=== PATIENT | male | born 1945 | race Caucasian/White ===

== ENCOUNTER → 2016-05-25 | Outpatient (CLI) | payer OTHER ==
[~2016-05-25] MED LIST: ACET-1256 PO; AMLO-114 PO; AMR2 PO; ASPEC325 PO; ASPI81TA28 PO; CITA40TA12 PO; CLOP1TAB15 PO; DVN80 PO; EZET10TA41 PO; FEXO1TAB49 PO; FINA5TAB PO; FOLI1TAB7 PO; GLIM4TAB2 PO; ISOS30TA3 PO; ISOS30TA51 PO; LANS15CA6 PO; LANSOPRAZOLE 15 MG PO; LORA-741 PO; LOSA100T65 PO; MELO7.5T5 PO; MESA0.37 PO; METO50TA7 PO; NTRGSL/4 UT; ONDA8TAB6 PO; OXYSR10 PO; ROSU20TA PO; RXC5 PO; SNK PO; TRAZ50TA35 PO
[2016-05-25 13:19] LABS: CHOLESTEROL/HDL RATIO 3.2
[2016-05-25 13:25] LABS: ESTIMATED AVERAGE GLUCOSE 157 mg/dl; HA1C FLAG Normal (Normal)
== END | disposition home or self-care (01) ==
LOC: C.LABMFLN 08:15
PROVIDERS: ATTEND Family Medicine
DX: E78.5 Hyperlipidemia, unspecified (principal); E11.9 Type 2 diabetes mellitus without complications

== ENCOUNTER → 2016-08-01 | Outpatient (CLI) | payer OTHER ==
[~2016-08-01] MED LIST changes: -ISOS30TA51 PO; +ISR/30 PO
--- NOTE | 2016-08-01 15:16 | DIAGNOSTIC IMAGING REPORT ---
CT TEMPORAL ORB/SELLA/TEMP W/O CT DOSE: 1375.36 mGy.cm CLINICAL HISTORY: History of mastoidectomy with right otorrhea. TECHNIQUE: Helical images were acquired in the transverse plane. Coronal reformatted images were acquired. COMPARISON STUDY: None. FINDINGS: There is near complete opacification of the right maxillary sinus. There is mild mucosal thickening within the left maxilla sinus. There are postsurgical changes of a right mastoidectomy. There is opacification of multiple left mastoid air cells. Several small fluid levels are visualized. The left scutum appears intact. There is truncation of the right scutum possibly secondary to prior surgery. The right middle ear cavity appears well aerated. Within the left middle ear cavity, there is minimal soft tissue at the level of the oval window. The internal auditory canals appear symmetric. IMPRESSION: 1. Near complete opacification of the right maxillary sinus 2. Postsurgical changes of a right mastoidectomy 3. Left mastoid effusion 4. The left scutum appears intact 5. Minimal soft tissue within the left middle ear cavity at the level of the oval window 6. Moderate arthritic changes involving the temporomandibular joints bilaterally Electronically signed by: Joel Day M.D. 08/01/2016 3:15 PM Dictated Date/Time: 08/01/2016 3:09 PM
== END | disposition home or self-care (01) ==
LOC: C.CTS 14:05
PROVIDERS: ATTEND Physician Assistant
DX: Z98.890 Other specified postprocedural states (principal)

== ENCOUNTER → 2016-08-29 | Outpatient (CLI) | payer OTHER ==
[~2016-08-29] MED LIST changes: -AMR2 PO; -ASPEC325 PO; -DVN80 PO; -EZET10TA41 PO; -LANSOPRAZOLE 15 MG PO; -MELO7.5T5 PO
== END | disposition home or self-care (01) ==
LOC: C.LABMFLN 10:59
DX: Z01.818 Encounter for other preprocedural examination (principal)

== ENCOUNTER → 2016-09-05 | Outpatient (CLI) | payer OTHER | END | disposition home or self-care (01) | LOC: C.LABMFLN 10:26 | PROVIDERS: ATTEND Physician Assistant | DX: Z01.818 Encounter for other preprocedural examination (principal) ==

== ENCOUNTER 2016-09-14 09:55 | Inpatient (IN) | payer OTHER ==
[2016-08-16 13:45] VITALS: BMI 25.0
--- NOTE | 2016-08-16 14:22 | PAT Medication Instructions ---
Service Date Aug 16, 2016. Current Home Medication List Acetaminophen (Tylenol), 1,000 MG PO BID Amlodipine (Norvasc), 10 MG PO QPM Aspirin (Aspirin Ec), 81 MG PO QAM Citalopram Hydrobromide (Celexa), 40 MG PO HS Clopidogrel (Plavix), 75 MG PO QAM Fexofenadine Hcl (Yessy Allergy), 1 TAB PO QAM Finasteride (Proscar), 5 MG PO QAM Folic Acid (Folvite), 1 MG PO QAM Glimepiride (Glimepiride), 1 TAB PO BID Isosorbide Dinitrate (Isordil), 30 MG PO QAM Lansoprazole (Prevacid), 15 MG PO QAM Lorazepam (Ativan), 0.5 MG PO TID Losartan Potassium (Cozaar), 100 MG PO QAM Mesalamine (Apriso), 4 CAP PO QAM Metoprolol Succ (Toprol Xl) (Toprol-Xl), 50 MG PO QPM Nitroglycerin (Nitrostat), 0.4 MG UT PRN Rosuvastatin Calcium (Crestor), 20 MG PO QPM Trazodone Hcl (Trazodone), 25 MG PO HS Medication Instructions For Your Scheduled Surgery Clopidogrel (Plavix), 75 MG PO QAM (patient will check with envelope machine adjuster for instructions (please make cardio aware that you have to be off Plavix for 7 days for spinal anesthesia) Mesalamine (Apriso), 4 CAP PO QAM (patient will check with surgeon for instructions) Nitroglycerin (Nitrostat), 0.4 MG UT PRN (if needed) - Hold the following medications the morning of surgery: Losartan Potassium (Cozaar), 100 MG PO QAM Glimepiride (Glimepiride), 1 TAB PO BID Folic Acid (Folvite), 1 MG PO QAM Fexofenadine Hcl (Yessy Allergy), 1 TAB PO QAM - Take the following medications the morning of surgery with a sip of water: Lorazepam (Ativan), 0.5 MG PO TID Isosorbide Dinitrate (Isordil), 30 MG PO QAM Lansoprazole (Prevacid), 15 MG PO QAM Aspirin (Aspirin Ec), 81 MG PO QAM Acetaminophen (Tylenol), 1,000 MG PO BID Finasteride (Proscar), 5 MG PO QAM - Take the following medications as scheduled the night before surgery: Rosuvastatin Calcium (Crestor), 20 MG PO QPM Trazodone Hcl (Trazodone), 25 MG PO HS Metoprolol Succ (Toprol Xl) (Toprol-Xl), 50 MG PO QPM Lorazepam (Ativan), 0.5 MG PO TID Glimepiride (Glimepiride), 1 TAB PO BID Citalopram Hydrobromide (Celexa), 40 MG PO HS Acetaminophen (Tylenol), 1,000 MG PO BID Amlodipine (Norvasc), 10 MG PO QPM If you have any questions please call us at [phone] or [phone] ( [place]) or [phone]
[2016-08-16 15:27] LABS: BASO % 0.3 %; BASO ABS # 0.02 K/uL (0-0.2); COMPLETE YES; EOS % 0.9 %; HEMATOCRIT 41.1 % (42-52); IG% 0.2 %; LYMPH % 36.6 %; LYMPH ABS # 2.33 K/uL (1.2-3.4); MEAN CELL VOLUME 86.9 fL (80-100); MEAN CORPUSCULAR HEMOGLOBIN 29.6 pg (25-34); MEAN CORPUSCULAR HGB CONC 34.1 g/dl (32-36); MEAN PLATELET VOLUME 9.9 fL (7.4-10.4); MONO % 11.6 %; NEUT % 50.4 %; PLATELET COUNT 162 K/uL (130-400); RED BLOOD COUNT 4.73 M/uL (4.7-6.1); WHITE BLOOD COUNT 6.37 K/uL (4.8-10.8)
[2016-08-16 15:50] LABS: PARTIAL THROMBOPLASTIN RATIO 1.1; PROTHROMBIN TIME (PATIENT) 10.4 SECONDS (9.0-12.0)
[2016-08-16 16:17] LABS: BUN/CREATININE RATIO 16.1 (10-20); CALCIUM 9.6 mg/dl (8.5-10.1); POTASSIUM 4.4 mmol/L (3.5-5.1)
[2016-08-17 07:29] LABS: ESTIMATED AVERAGE GLUCOSE 166 mg/dl; HA1C FLAG Normal (Normal)
--- NOTE | 2016-09-13 12:17 | HISTORY & PHYSICAL EXAMINATION ---
DATE OF ADMISSION: 09/14/2016 CHIEF COMPLAINT: Bilateral knee pain. HISTORY OF PRESENT ILLNESS: The patient is a 71-year-old male with known bilateral knee osteoarthritis. He had previous right femur surgery many years ago. He has had previous corticosteroid injections. He is limited with medication use due to Plavix use. He has ongoing pain and disability with activities of daily living. He has pain with prolonged weightbearing and standing activities. He has difficulty in kneeling, bending, or squatting activities. He now desires to proceed with left total knee arthroplasty and right knee corticosteroid injection. PAST MEDICAL HISTORY: Type 2 diabetes, renal cancer status post nephrectomy, coronary artery disease, depression, hypertension, and hyperlipidemia. PAST SURGICAL HISTORY: Right femur surgery, nephrectomy, left shoulder surgery, and coronary angioplasty. MEDICATIONS: Apriso 4 capsules q.a.m., Flonase 2 sprays each nostril daily, Nitrostat 0.4 mg sublingual p.r.n. chest pain, Crestor 20 mg daily, Yessy 180 mg daily, Toprol-XL 50 mg daily, Amaryl 4 mg 2 tablets once daily, Plavix 75 mg daily, Imdur 30 mg daily, aspirin 81 mg daily, folic acid 1 mg daily, Ativan 0.5 mg 3 times daily p.r.n., Celexa 40 mg daily, trazodone HCL 50 mg half tablet at bedtime, losartan potassium 100 mg daily, Tylenol extra strength 2 tablets twice daily, amlodipine besylate 10 mg daily, lansoprazole 15 mg daily, finasteride 5 mg daily. ALLERGIES: CODEINE CAUSES NAUSEA; PENICILLIN, HIVES AND RASH; PERCOCET CAUSES HIM TO HALLUCINATE; SULFA ANTIBIOTICS CAUSES HIVES. SOCIAL HISTORY AND REVIEW OF SYSTEMS: Noncontributory. PHYSICAL EXAMINATION: GENERAL: Well-nourished, well-developed elderly male who appears older than stated age. HEENT: Normocephalic, atraumatic, extraocular movements intact, oropharynx pink and moist. NECK: Supple without adenopathy. LUNGS: Clear to auscultation bilaterally. HEART: Regular rate and rhythm. ABDOMEN: Soft, nontender, nondistended. EXTREMITIES: The upper extremities are within normal limits. The bilateral knees have a varus alignment. He complains primarily of medial compartment pain. His range of motion from 0-120 degrees bilaterally. He has moderate crepitus bilaterally. X-RAYS: X-rays were reviewed. He has severe tricompartmental disease bilaterally. He has bone on bone arthritis of the medial compartment with complete loss of the joint space. There is diffuse osteophyte about the medial, lateral and patellofemoral compartments. There is presence of an IM sancho in the right femur. ASSESSMENT: Bilateral knee degenerative joint disease. PLAN: Risks versus benefits were discussed. Consent was obtained. The patient's primary care physician is Dr. Barber. His director service is [facility] in [place]. Will proceed with left total knee arthroplasty and right knee corticosteroid injection upon preoperative workup and medical clearance.
[2016-09-14] VITALS (9 sets, daily range): BP systolic 129–164; BP diastolic 73–89; PULSE 56–83; TEMP 36.3–36.8; O2SAT 95–99; Ht 185.4 cm; Wt 85.9 kg
[~2016-09-14] VITALS: Ht 185.4 cm; Wt 85.9 kg
[~2016-09-14 09:55] MED LIST changes: +ACETAMINOPHEN 500 MG TAB PO SCH; +BUPIVACAINE 0.5 % 5 MG/1 ML PF 10ML VIAL ONE; +DEXAMETHASONE 4 MG TAB PO SCH; +FAMOTIDINE 20 MG TAB PO SCH; +GABAPENTIN 300 MG CAP PO SCH; -ISOS30TA3 PO; +LACTATED RINGER'S 1000ML 1,000 ML IV SCH; +METOCLOPRAMIDE HCL 10 MG TAB PO SCH; -ONDA8TAB6 PO; -OXYSR10 PO; +ROPIVACAINE 5MG/ML 30 ML 150 MG, BUPIVACAINE/EPINEPHR 0.5% MPF 30 ML, KETOROLAC TROMETH... INFIL SCH; -RXC5 PO; -SNK PO; +VANCOMYCIN INJ 1,300 MG in SODIUM CHLORIDE 0.9% 250ML 250 ML IV SCH
--- NOTE | 2016-09-14 10:05 | History & Physical Bridge Note ---
H&P Re-Evaluation Bridge Note: I have examined the patient, reviewed the History & Physical and in the interval since the performance of the History & Physical I have noted the following changes of clinical significance: No changes noted
[2016-09-14] MEDS ORDERED: ATROPINE SULFATE 0.1 MG/ML 5ML SYR IV PRN (10:30)
[2016-09-14] MEDS ORDERED: ONDANSETRON INJ 2 MG/ML 2 ML VIAL IV PRN ×2 (10:30→13:45)
[2016-09-14] MEDS ORDERED: EpHEDrine SULFATE INJ 50 MG/ML AMP IV PRN (10:30)
[2016-09-14] MEDS ORDERED: FENTANYL CITRATE INJ 50 MCG/1 ML 2 ML VIAL IV PRN (10:30)
[2016-09-14] MEDS ORDERED: FENTANYL CITRATE INJ 50 MCG/1 ML 2 ML VIAL ONE (11:03)
[2016-09-14] MEDS ORDERED: MIDAZOLAM HCL 1 MG/ML 2ML VIAL ONE (11:03)
[2016-09-14] MEDS ORDERED: LIDOCAINE HCL 2% 2 ML VIAL (20MG/ML) ONE (11:05)
[2016-09-14] MEDS ORDERED: ONDANSETRON INJ 2 MG/ML 2 ML VIAL ONE (11:06)
[2016-09-14] MEDS ORDERED: PROPOFOL IV EMULSION 10 MG/ML 20 ML VIAL IV ONE (11:06)
[2016-09-14] MEDS ORDERED: DEXAMETHASONE SOD INJ 4 MG/ML VIAL ONE (11:07)
[2016-09-14] MEDS ORDERED: ORTHO JOINT ANESTHETIC ONE (11:34)
[2016-09-14] MEDS ORDERED: BACITRACIN 50000 UNIT VIAL ONE (11:34)
[2016-09-14] MEDS ORDERED: POVIDONE-IODINE OP SOLN 30 ML BTL ONE (11:34)
[2016-09-14] MEDS ORDERED: METHYLPREDNISOLONE ACETATE 80 MG/ML VIAL ONE (11:35)
[2016-09-14] MEDS ORDERED: BUPIVACAINE/EPINEPHRINE 0.5% MPF 1:200,000 30 ML VIAL ONE (11:35)
[2016-09-14] MEDS ORDERED: EpHEDrine SULFATE 50MG/5ML SYR ONE (12:33)
--- NOTE | 2016-09-14 13:11 | [facility] Post Operative Brief Note ---
Immediate Operative Summary Operative Date September 14, 2016. Pre-Operative Diagnosis bilat djd knee Post-Operative Diagnosis same Procedure(s) Performed inject right tka lef Surgeon Eileen [employer] Surgeon(s) Diane Estimated Blood Loss 10cc Findings severe djd left moderate right Specimens bone Disposition Recovery Room / PACU
[2016-09-14] MEDS ORDERED: TRAMADOL HCL 50 MG TAB PO PRN (13:45)
[2016-09-14] MEDS ORDERED: BISACODYL 10 MG SUPP PR PRN (13:45)
[2016-09-14] MEDS ORDERED: MAGNESIUM HYDROXIDE SUSP 30 ML UDC PO PRN (13:45)
[2016-09-14] MEDS ORDERED: NITROGLYCERIN 0.4 MG SL PER TAB CHARGE UT SCH (13:45)
[2016-09-14] MEDS ORDERED: MoRPHine SULFATE 4 MG/ML 1 ML CARP\\VIAL IV PRN (13:45)
[2016-09-14] MEDS ORDERED: OXYCODONE HCL IR 5 MG TAB (IMMEDIATE RELEASE) PO PRN (13:45)
[2016-09-14] MEDS ORDERED: ALUMINUM/MAGNESIUM/SIMETH (MAALOX MAX) 30 ML UDC PO PRN (13:45)
--- NOTE | 2016-09-14 14:18 | DIAGNOSTIC IMAGING REPORT ---
LEFT KNEE 2 VIEWS History: Left total knee arthroplasty. Degenerative arthritis. Postop. FINDINGS: The patient is status post a left total knee arthroplasty. The hardware is intact. No fracture or dislocation. Skin oscar and surgical drains are in place. IMPRESSION: Left total knee arthroplasty. No evidence for hardware complication. Electronically signed by: Alex Bhakta M.D. 09/14/2016 2:17 PM Dictated Date/Time: 09/14/2016 2:16 PM
--- NOTE | 2016-09-14 14:20 | OPERATIVE REPORT ---
DATE OF OPERATION: 09/14/2016 PREOPERATIVE DIAGNOSIS: Bilateral degenerative joint disease of the knees. POSTOPERATIVE DIAGNOSIS: Bilateral degenerative joint disease of the knees. PROCEDURES: Right knee injection and left total knee arthroplasty. SURGEON: Dr. Arellano. LOGGING SPECIALIST: Neto Contreras PA-C. ANESTHESIA: Spinal. COMPLICATIONS: None. IMPLANTS USED: Femoral size 6, tibial size 5, tibial poly 9, and patella size 39. DESCRIPTION OF PROCEDURE: Following induction of adequate spinal anesthesia, the patient's right leg was injected with 80 mg of Depo-Medrol and 5 mL of Marcaine. Following this, the left leg was prepped and draped in usual sterile manner. Following induction of spinal anesthesia, the patient's left leg was prepped and draped in the usual sterile manner. Limb was exsanguinated with an Esmarch bandage and tourniquet was inflated to 350 mmHg. A longitudinal incision was made anteriorly. Subcutaneous tissue was sharply dissected. Electrocautery was used for hemostasis. Prepatellar bursa was incised and median parapatellar incision was performed. Patella was everted and the knee was flexed. Fat pad was removed to aid in visualization and the anterior and posterior cruciate ligaments were removed. The medial face of the tibia was cleared of soft tissue first with a Bovie and a Sanchez elevator. This tissue was retracted posteriorly using a blunt Hohmann. A Inman retractor was used to expose the synovium above on the anterior aspect of the femur and this was removed down to bone. The PSI guide was placed on the distal femur and two pins were placed anteriorly and kept in position and two additional pins were placed distally and removed. The distal femoral cutting block was placed in position and the distal femoral cut was used in the +0 setting. Next, the cutting block was removed and the 6 block was placed in the distal end of the femur. Care was taken to ensure appropriate external rotation and feeler gauge was used to ensure no notching would occur. The femoral block was centered on the distal femur and in the medial and lateral direction and was fixed using two bone screws. The gold pins were then removed. The oscillating saw was used to create the bone cuts and the distal femoral cutting block was removed and the reciprocating saw was used to further trim the femoral cuts as well as a deep in the area for the trochlear groove. Next, posterior condyle remnants were removed. Following this, a meniscal clamp and knife were utilized to remove the anterior portion of both medial and lateral meniscus. The proximal tibia PSI guide was placed into position and the proximal tibial cutting guide was screwed into position. The extra medullary alignment guide was utilized to ensure appropriate alignment. The proximal tibia was cut and the proximal tibial cutting block was removed and this bone fragment was removed. The appropriate guide was used to perform the notch cut on the distal femur and a lamina lead scientist and a cochlear knife were utilized to finish both medial and lateral meniscectomies to remove any remnants of the posterior or anterior cruciate ligaments. Following this, the distal femoral component was impacted into position and blunt Jamie was used to sublux the tibia anteriorly. The proximal tibia was sized and a 5 tibial tray was chosen as the size to be used. This was put into position and appropriate external rotation and a double check with extramedullary alignment guide was performed. The canal for the tibial stem was prepared first with a 17 mm drill and then the punch and a mallet and the trial tibial poly was placed. A size 9 was chosen the size to be used. It was brought to extension and the patella was prepared with the patellar reamer. A size 39 component was chosen the size to be used. The trial component was placed and knee was taken through a full range of motion and there was found to be no lateral subluxation of the tibia. No lateral release was required. The trials were all removed. The final components were obtained and assembled. Cement was mixed. The knee was thoroughly irrigated and the ortho mix was injected about the knee joint. The final components were cemented into position. After thoroughly suctioning and drying the bone ends, all excess cement was removed. The knee was held in extension while the cement hardened. The wound was irrigated and closed over a Hemovac drain. #1 Vicryl was used to close the extensor mechanism. Subcutaneous tissues closed using 0 Dexon. Skin was closed with oscar. Sterile dressing of Adaptic, 4 x 4's, sterile Webril, and Shaan was applied. The patient tolerated the procedure well. Due to the complex nature of the procedure, the entire surgery was performed with the operational assistance of Neto Contreras PA-C. The insurance account assistant, under direct supervision, was involved in the actual performance of all aspects of the surgical procedure including hemostasis, tissue retraction and incision, instrument management, patient positioning, and wound closure. DISPOSITION: Recovery room stable. I attest to the content of the Intraoperative Record and any orders documented therein. Any exceptio ns are noted below.
--- NOTE | 2016-09-14 14:53 | Anesthesiology Progress Note ---
Anesthesia Post Op Note Date & Time September 14, 2016 at 14:53 Vital Signs Pain Intensity: 0 Vital Signs Past 12 Hours Date Time Temp Pulse Resp B/P Pulse Ox O2 Delivery O2 Flow Rate FiO2 09/14/16 14:15 36.9 56 16 118/69 99 Mask 8 09/14/16 14:05 59 16 118/71 99 Mask 8 09/14/16 13:55 57 16 124/67 99 Mask 8 09/14/16 13:45 60 16 122/70 99 Mask 8 09/14/16 13:39 37.7 71 16 146/73 100 Mask 8 09/14/16 10:33 36.8 56 15 164/80 97 Room Air Notes Mental Status: alert / awake / arousable, participated in evaluation Pt Amnestic to Procedure: Yes Nausea / Vomiting: adequately controlled Pain: adequately controlled Airway Patency, RR, SpO2: stable & adequate BP & HR: stable & adequate Hydration State: stable & adequate Neuraxial Anesthesia: was administered, sensory block is resolving Anesthetic Complications: no major complications apparent
[2016-09-14] MEDS: SODIUM CHLORIDE 0.9% 1000ML 1,000 ML IV SCH ×2 (14:57→23:21)
[2016-09-14] MEDS ORDERED: GLUCAGON FOR INJ 1 MG VIAL SQ PRN (15:15)
[2016-09-14] MEDS ORDERED: GLUCOSE 40% GEL 15 GM TUBE PO PRN (15:15)
[2016-09-14] MEDS ORDERED: GLUCOSE 10 TABS/TUBE PO PRN (15:15)
[2016-09-14] MEDS ORDERED: DEXTROSE 50% 50 ML SYR IV PRN (15:15)
[2016-09-14] MEDS ORDERED: ISOS30TA3 PO (15:21)
[2016-09-14] MEDS: LORAZEPAM 0.5 MG TAB PO SCH ×2 (16:00→22:27)
[2016-09-14] MEDS: ACETAMINOPHEN 500 MG TAB PO SCH ×2 (16:01→23:22)
--- NOTE | 2016-09-14 17:26 | Medical Consult ---
Consultation Date of Consultation: September 14, 2016. Attending Physician: Dillan Arellano M.D. Reason for Consultation: Medical Management History of Present Illness Mr. Carreno is a 71 y/o male with PMHx of Renal CA S/P L Nephrectomy, CAD S/P ROBINSON x 3, T2DM, HTN, and HLD who is S/P L TKA on 09/[address] Arellano. Patient underwent PCP evaluation and cardiology clearance with stress testing prior to surgery. He reports compliance with home medications. Reporting Metoprolol was recently decreased from 50 mg to 25 mg due to bradycardia in the 40s. Currently he has no pain 2/2 nerve block. No flatus but active BS x 4 quadrants. He denies N/V/abdominal pain. He is bradycardic in the mid to high 50s. Mildly hypertensive but stable. Last A1c reveals 7.4. Past Medical/Surgical History 1. T2DM 2. Renal CA S/P L Nephrectomy 3. CAD S/P ROBINSON x 3 4. HTN 5. HLD Family History Hypertension Social History Smoking Status: Never Smoker Smokeless Tobacco Use: No Alcohol Use: socially Drug Use: none Marital Status: Allergies Coded Allergies: Sulfa Antibiotics (Verified Allergy, Mild, HIVES, 09/14/16) Hydrocodone (Unverified Allergy, Unknown, per records , 09/14/16) Penicillins (Verified Allergy, Unknown, HIVES, 09/14/16) Codeine (Verified Adverse Reaction, Mild, N&V, 09/14/16) Current Inpatient Medications Current Inpatient Medications Medications (Trade) Dose Ordered Sig/Reji Route Start Time Stop Time Status Last Admin Dose Admin Lactated Ringer's 1,000 ml @ 15 mls/hr Q24H IV 09/14/16 06:00 09/15/16 05:59 Lactated Ringer's (Lr 1000ml) 1,000 ml @ 60 mls/hr [id number] IV 09/14/16 06:00 09/14/16 22:39 09/14/16 10:19 60 MLS/HR Acetaminophen (Tylenol Tab) 1,000 mg PREOP PO 09/14/16 06:00 09/14/16 18:00 Dexamethasone (Decadron Tab) 8 mg PREOP PO 09/14/16 06:00 09/14/16 18:00 09/14/16 10:54 8 MG Famotidine (Pepcid Tab) 20 mg PREOP PO 09/14/16 06:00 09/14/16 18:00 09/14/16 10:54 20 MG Gabapentin (Neurontin Cap) 300 mg PREOP PO 09/14/16 06:00 09/14/16 18:00 09/14/16 10:54 300 MG Metoclopramide HCl 10 mg 10 mg PREOP PO 09/14/16 06:00 09/14/16 18:00 09/14/16 10:54 10 MG Vancomycin HCl/ Sodium Chloride (Vancomycin Inj/ Nss 250ml) 276 ml @ 125 mls/hr TODAY@0600 IV 09/14/16 06:00 09/14/16 18:00 09/14/16 10:19 125 MLS/HR Amlodipine Besylate (Norvasc Tab) 10 mg QPM PO 09/14/16 21:00 10/14/16 20:59 Citalopram Hydrobromide (celeXA TAB) 40 mg HS PO 09/14/16 21:00 10/14/16 20:59 Clopidogrel Bisulfate (plAVix TAB) 75 mg QAM PO 09/17/16 09:00 10/17/16 08:59 Finasteride (Proscar Tab) 5 mg QAM PO 09/15/16 09:00 10/15/16 08:59 Lorazepam (Ativan Tab) 0.5 mg TID PO 09/14/16 14:00 10/14/16 13:59 09/14/16 16:00 0.5 MG Losartan Potassium (coZAAR TAB) 100 mg QAM PO 09/15/16 09:00 10/15/16 08:59 Metoprolol Succinate (Toprol Xl Tab) 50 mg QPM PO 09/14/16 21:00 10/14/16 20:59 Nitroglycerin (Nitrostat Tab) 0.4 mg PRN UT 09/14/16 13:45 10/14/16 13:44 Rosuvastatin Calcium (Crestor Tab) 20 mg QPM PO 09/14/16 21:00 10/14/16 20:59 Trazodone HCl (Desyrel Tab) 25 mg HS PO 09/14/16 21:00 10/14/16 20:59 Glimepiride (Amaryl Tab) 4 mg BIDM PO 09/14/16 17:45 10/14/16 17:44 Isosorbide Mononitrate (Imdur Ext Rel Tab) 30 mg QAM PO 09/15/16 09:00 10/15/16 08:59 Insulin Aspart SLIDING SCALE G... ACHS SC 09/14/16 17:15 10/14/16 17:14 Sodium Chloride 1,000 ml @ 100 mls/hr Q10H IV 09/14/16 13:40 09/15/16 13:39 09/14/16 14:57 100 MLS/HR Vancomycin HCl/ Sodium Chloride (Vancomycin Inj/ Nss 250ml) 276 ml @ 125 mls/hr TODAY@2200 IV 09/14/16 22:00 09/15/16 00:13 Oxycodone HCl (Roxicodone Immediate Rel Tab) 1 TABLET FOR PAIN RATING... Q4H PRN PO 09/14/16 13:45 09/28/16 13:44 Oxycodone HCl (Oxycontin Tab) 10 mg Q12 PO 09/14/16 21:00 09/28/16 20:59 Morphine Sulfate (MoRPHine SULFATE INJ) 4 mg Q4HWA PRN IV 09/14/16 13:45 09/28/16 13:44 Acetaminophen (Tylenol Tab) 1,000 mg Q8H PO 09/14/16 16:00 10/14/16 15:59 09/14/16 16:01 1,000 MG Magnesium Hydroxide (Milk Of Magnesia Susp) 30 ml Q6H PRN PO 09/14/16 13:45 10/14/16 13:44 Bisacodyl (Dulcolax Supp) 10 mg DAILY PRN SD 09/14/16 13:45 10/14/16 13:44 Senna (Senokot Tab) 17.2 mg HS PO 09/14/16 21:00 10/14/16 20:59 Docusate Sodium (coLACE CAP) 100 mg BID PO 09/14/16 21:00 10/14/16 20:59 Al Hydrox/Mg Hydrox/Simethicone (Maalox Max Susp) 15 ml Q4H PRN PO 09/14/16 13:45 10/14/16 13:44 Multivitamins (Multivitamin Tab) 1 tab QAM PO 09/15/16 09:00 10/15/16 08:59 Ondansetron HCl (Zofran Inj) 4 mg Q6H PRN IV 09/14/16 13:45 10/14/16 13:44 Ferrous Gluconate (Ferrous Gluconate Tab) 324 mg TIDM PO 09/14/16 17:45 10/14/16 17:59 Pantoprazole Sodium (Protonix Tab) 40 mg QAM PO 09/15/16 09:00 10/15/16 08:59 Tramadol HCl (Ultram Tab) 1 tablet for pain rating... Q4H PRN PO 09/14/16 13:45 10/14/16 13:44 Aspirin (Ecotrin Tab) 81 mg BID PO 09/14/16 21:00 10/14/16 20:59 Glucose (Glucose 40% Gel) 15-30 GRAMS 15 GRAMS... UD PRN PO 09/14/16 15:15 10/14/16 15:14 Glucose (Glucose Chew Tab) 4-8 Tablets 4 Tabl... UD PRN PO 09/14/16 15:15 10/14/16 15:14 Dextrose (Dextrose 50% 50ML Syringe) 25-50ML OF 50% DW IV FOR... UD PRN IV 09/14/16 15:15 10/14/16 15:14 Glucagon (Glucagon Inj) 1 mg UD PRN SQ 09/14/16 15:15 10/14/16 15:14 Miscellaneous Information (Order Awaiting Action) 1 ea QS N/A 09/14/16 16:00 10/14/16 15:59 Review of Systems Constitutional: No chills, No fever Eyes: No worsening of vision ENT: No nasal symptoms, No sore throat, No trouble swallowing Respiratory: No cough, No shortness of breath Cardiovascular: No chest pain Abdomen: No nausea, No pain, No vomiting Genitourinary - Male: No dysuria Hematologic / Lymphatic: No abnormal bleeding/bruising, No clotting problems Integumentary: No rash Physical Exam Date Time Temp Pulse Resp B/P Pulse Ox O2 Delivery O2 Flow Rate FiO2 09/14/16 16:32 36.8 59 17 143/77 99 Nasal Cannula 2.0 09/14/16 15:45 Nasal Cannula 2.0 09/14/16 15:39 36.5 58 17 150/77 98 Nasal Cannula 2.0 09/14/16 15:15 36.6 58 16 130/76 95 Nasal Cannula 2.0 09/14/16 14:40 95 Nasal Cannula 2.0 09/14/16 14:40 Nasal Cannula 2.0 09/14/16 14:40 36.6 59 16 129/73 95 Nasal Cannula 2.0 09/14/16 14:15 36.9 56 16 118/69 99 Mask 8 09/14/16 14:05 59 16 118/71 99 Mask 8 09/14/16 13:55 57 16 124/67 99 Mask 8 09/14/16 13:45 60 16 122/70 99 Mask 8 09/14/16 13:39 37.7 71 16 146/73 100 Mask 8 09/14/16 10:33 36.8 56 15 164/80 97 Room Air General Appearance: WD/WN, no apparent distress Head: normocephalic, atraumatic Eyes: sclerae normal ENT: hearing grossly normal, pharynx normal Neck: supple, no JVD, trachea midline Respiratory/Chest: lungs clear, normal breath sounds, no respiratory distress, no accessory muscle use Cardiovascular: regular rate, rhythm, no gallop, no murmur Abdomen/GI: normal bowel sounds, non tender, soft Extremities/Musculoskelatal: no pedal edema, + pertinent finding (L leg with chase wrap that is clean/dry/intact; sensation intact to light touch of LLE; able to move toes) Neurologic/Psych: alert, oriented x 3 Skin: normal color, warm/dry Laboratory Results Last 24 Hours Test 09/14/16 10:14 09/14/16 13:42 09/14/16 17:00 Bedside Glucose 169 mg/dl 161 mg/dl 225 mg/dl Assessment & Plan Mr. Carreno is a 71 y/o male with PMHx of Renal CA S/P L Nephrectomy, CAD S/P ROBINSON x 3, T2DM, HTN, HLD, and BPH who is S/P L TKA on 09/[address] Arellano. S/P L TKA by Dr. Arellano on 09/14: - Pain management, IVF, PT/OT, and DVT prophylaxis per primary - DVT prophylaxis - ASA 81 mg BID T2DM: - Can continue Glimepiride 4 mg BID with SSI coverage if necessary given steroid injections received CAD S/P ROBINSON x 3 and HTN: STABLE - Plavix 75 mg daily with daily ASA held as utilizing BID dosing for DVT prophylaxis - Rosuvastatin 20 mg daily - Isosorbide mononitrate 30 mg daily - Losartan 100 mg daily and amlodipine 10 mg daily - Metoprolol 25 mg daily - recently decreased from 50 mg due to symptomatic bradycardia BPH: - Finasteride 5 mg daily Code Status: FULL RESUSCITATION Disposition: Per primary team Thank you for the consultation. We will continue to follow Pt seen/examined independently - reviwed above consult as completed by PA - discussed with PA and pt 71 y/o M post TKA - medical service asked to assess post-op due to underlying medical issues OE AA x 3 - no distress S1,2 R CTAB NT, ND P: Pt stable - relatively asymptomatic post -op No current reason for medication changes as he is recovering well Medical service will follow daily - post-op labs pending
[2016-09-14] MEDS: INSULIN ASPART 100 UNITS/ML 3 ML PEN SC SCH ×2 (18:20→20:55)
[2016-09-14] MEDS: FERROUS GLUCONATE 324 MG TAB PO SCH (18:21)
[2016-09-14] MEDS: GLIMEPIRIDE 2 MG TAB PO SCH (18:21)
[2016-09-14] MEDS ORDERED: METOPROLOL SUCC 50MG EXT REL TAB PO SCH (21:00)
[2016-09-14] MEDS: AMLODIPINE BESYLATE 5 MG TAB PO SCH (21:00)
[2016-09-14] MEDS: ASPIRIN 81 MG ECTAB PO SCH (21:00)
[2016-09-14] MEDS: CITALOPRAM 40 MG TAB PO SCH (21:00)
[2016-09-14] MEDS: SENNA 8.6 MG TAB PO SCH (21:01)
[2016-09-14] MEDS: ROSUVASTATIN CALCIUM 20 MG TAB PO SCH (21:01)
[2016-09-14] MEDS: DOCUSATE SODIUM 100 MG CAP PO SCH (21:01)
[2016-09-14] MEDS: METOPROLOL SUCC 25MG EXT REL TAB PO SCH (21:02)
[2016-09-14] MEDS: OXYCODONE HCL 10 MG TABCR (OXYCONTIN) PO SCH (21:02)
[2016-09-14] MEDS ORDERED: VANCOMYCIN INJ 1,300 MG in SODIUM CHLORIDE 0.9% 250ML 250 ML IV SCH (22:00)
[2016-09-14] MEDS: TRAZODONE HCL 50 MG TAB PO SCH (22:29)
[2016-09-15] VITALS (7 sets, daily range): BP systolic 117–151; BP diastolic 53–79; PULSE 58–69; TEMP 36.5–36.9; O2SAT 97–98
[2016-09-15 07:13] LABS: HEMATOCRIT 31.9 % (42-52); MEAN CELL VOLUME 86.4 fL (80-100); MEAN CORPUSCULAR HEMOGLOBIN 29.5 pg (25-34); MEAN CORPUSCULAR HGB CONC 34.2 g/dl (32-36); MEAN PLATELET VOLUME 9.9 fL (7.4-10.4); PLATELET COUNT 188 K/uL (130-400); RED BLOOD COUNT 3.69 M/uL (4.7-6.1); WHITE BLOOD COUNT 16.51 K/uL (4.8-10.8)
--- NOTE | 2016-09-15 07:43 | Anesthesiology Progress Note ---
Anesthesia Post Op Note Date & Time September 15, 2016 at 07:43 Vital Signs Pain Intensity: 0.0 Vital Signs Past 12 Hours Date Time Temp Pulse Resp B/P Pulse Ox O2 Delivery O2 Flow Rate FiO2 09/15/16 06:55 36.8 61 17 124/63 97 Room Air 09/15/16 03:56 36.8 59 16 136/79 97 Room Air 09/14/16 23:55 36.6 62 18 136/79 95 Room Air 09/14/16 23:18 Nasal Cannula 09/14/16 20:57 83 143/80 Notes Mental Status: alert / awake / arousable, participated in evaluation Pt Amnestic to Procedure: Yes Nausea / Vomiting: adequately controlled Pain: adequately controlled Airway Patency, RR, SpO2: stable & adequate BP & HR: stable & adequate Hydration State: stable & adequate Neuraxial Anesthesia: was administered, sensory block resolved Anesthetic Complications: no major complications apparent
[2016-09-15 07:44] LABS: BUN/CREATININE RATIO 23.6 (10-20); CALCIUM 8.7 mg/dl (8.5-10.1); CREATININE 1.1 mg/dl (0.60-1.40); POTASSIUM 4.6 mmol/L (3.5-5.1)
--- NOTE | 2016-09-15 08:00 | Orthopedic Progress Note ---
Orthopedic Progress Note Date of Service September 15, 2016. Subjective Post OP Day: 1 Reports: feeling well Objective N/V intact, dressing C/D/I (Hemovac in place), toes mobile Date Time Temp Pulse Resp B/P Pulse Ox O2 Delivery O2 Flow Rate FiO2 09/15/16 06:55 36.8 61 17 124/63 97 Room Air 09/15/16 03:56 36.8 59 16 136/79 97 Room Air 09/14/16 23:55 36.6 62 18 136/79 95 Room Air 09/14/16 23:18 Nasal Cannula 09/14/16 20:57 83 143/80 09/14/16 19:22 36.8 83 17 146/89 95 Nasal Cannula 2.0 09/14/16 17:57 36.3 74 17 150/79 99 Nasal Cannula 2.0 09/14/16 16:32 36.8 59 17 143/77 99 Nasal Cannula 2.0 09/14/16 15:45 Nasal Cannula 2.0 09/14/16 15:39 36.5 58 17 150/77 98 Nasal Cannula 2.0 09/14/16 15:15 36.6 58 16 130/76 95 Nasal Cannula 2.0 09/14/16 14:40 95 Nasal Cannula 2.0 09/14/16 14:40 Nasal Cannula 2.0 09/14/16 14:40 36.6 59 16 129/73 95 Nasal Cannula 2.0 09/14/16 14:15 36.9 56 16 118/69 99 Mask 8 09/14/16 14:05 59 16 118/71 99 Mask 8 09/14/16 13:55 57 16 124/67 99 Mask 8 09/14/16 13:45 60 16 122/70 99 Mask 8 09/14/16 13:39 37.7 71 16 146/73 100 Mask 8 09/14/16 10:33 36.8 56 15 164/80 97 Room Air Laboratory Results 24 Hours: Test 09/15/16 06:40 Hematocrit 31.9 % Hemoglobin 10.9 g/dL Assessment & Plan Assessment: 71 yo male stable POD #1 s/p left TKA Plan: 1. Med management 2. DVT prophylaxis- Plavix and ASA resumed, TEDs, SCDs 3. PT/OT 4. D/C planning- home w/ HH
[2016-09-15] MEDS ORDERED: MESALAMINE PO SCH (09:00)
[2016-09-15] MEDS: ACETAMINOPHEN 500 MG TAB PO SCH ×2 (09:10→16:43)
[2016-09-15] MEDS: FERROUS GLUCONATE 324 MG TAB PO SCH ×3 (09:11→18:43)
[2016-09-15] MEDS: GLIMEPIRIDE 2 MG TAB PO SCH ×2 (09:11→18:43)
[2016-09-15] MEDS: MULTIVITAMIN TAB PO SCH (09:12)
[2016-09-15] MEDS: OXYCODONE HCL 10 MG TABCR (OXYCONTIN) PO SCH ×2 (09:12→21:35)
[2016-09-15] MEDS: LORAZEPAM 0.5 MG TAB PO SCH ×3 (09:12→21:35)
[2016-09-15] MEDS: PANTOprazole SOD 40 MG TAB PO SCH (09:13)
[2016-09-15] MEDS: DOCUSATE SODIUM 100 MG CAP PO SCH ×2 (09:13→21:34)
[2016-09-15] MEDS: ASPIRIN 81 MG ECTAB PO SCH ×2 (09:13→21:34)
[2016-09-15] MEDS: FINASTERIDE 5 MG TAB PO SCH (09:14)
[2016-09-15] MEDS: ISOSORBIDE MONONITRATE 30 MG TABCR PO SCH (09:14)
[2016-09-15] MEDS: LOSARTAN POTASSIUM 50 MG TAB PO SCH (09:15)
[2016-09-15] MEDS: INSULIN ASPART 100 UNITS/ML 3 ML PEN SC SCH ×4 (09:26→21:33)
[2016-09-15] MEDS: INSULIN GLARGINE SOLOSTAR 100 UNITS/ML 3 ML PEN SC SCH (09:46)
[2016-09-15] MEDS: SODIUM CHLORIDE 0.9% 1000ML 1,000 ML IV SCH (09:48)
--- NOTE | 2016-09-15 17:02 | Progress Note ---
Subjective Date of Service: September 15, 2016. Subjective Pt evaluation today including: conversation w/ patient, physical exam, chart review, lab review, review of inpatient medication list feeling good notes any time he gets steroids his sugars go up no complaints otherwise Review of Systems ros otherwise negative except for as above Objective Vital Signs Date Time Temp Pulse Resp B/P Pulse Ox O2 Delivery O2 Flow Rate FiO2 09/15/16 14:59 36.7 58 18 117/62 97 Room Air 09/15/16 11:48 36.9 66 17 120/53 97 Room Air 09/15/16 08:00 97 Room Air 09/15/16 06:55 36.8 61 17 124/63 97 Room Air 09/15/16 03:56 36.8 59 16 136/79 97 Room Air 09/14/16 23:55 36.6 62 18 136/79 95 Room Air 09/14/16 23:18 Nasal Cannula 09/14/16 20:57 83 143/80 09/14/16 19:22 36.8 83 17 146/89 95 Nasal Cannula 2.0 09/14/16 17:57 36.3 74 17 150/79 99 Nasal Cannula 2.0 Physical Exam General Appearance: no apparent distress Eyes: EOMI ENT: hearing grossly normal Neck: trachea midline Respiratory/Chest: no respiratory distress, no accessory muscle use Extremities: normal range of motion 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, alert, normal mood/affect Skin: normal color, warm/dry Laboratory Results Last 24 Hours Test 09/14/16 17:00 09/14/16 20:22 09/15/16 06:40 09/15/16 08:09 Bedside Glucose 225 mg/dl 267 mg/dl 217 mg/dl White Blood Count 16.51 K/uL Red Blood Count 3.69 M/uL Hemoglobin 10.9 g/dL Hematocrit 31.9 % Mean Corpuscular Volume 86.4 fL Mean Corpuscular Hemoglobin 29.5 pg Mean Corpuscular Hemoglobin Concent 34.2 g/dl RDW Standard Deviation 39.8 fL RDW Coefficient of Variation 12.5 % Platelet Count 188 K/uL Mean Platelet Volume 9.9 fL Sodium Level 139 mmol/L Potassium Level 4.6 mmol/L Chloride Level 106 mmol/L Carbon Dioxide Level 24 mmol/L Anion Gap 9.0 mmol/L Blood Urea Nitrogen 26 mg/dl Creatinine 1.10 mg/dl Est Creatinine Clear Calc Drug Dose 69.6 ml/min Estimated GFR () 77.9 Estimated GFR (Non- 67.2 BUN/Creatinine Ratio 23.6 Random Glucose 225 mg/dl Calcium Level 8.7 mg/dl Hepatitis C Antibody Screen NEG Test 09/15/16 12:20 Bedside Glucose 274 mg/dl Assessment and Plan S/P L TKA by Dr. Arellano on 09/14: - Pain management, IVF, PT/OT, and DVT prophylaxis per primary - DVT prophylaxis - ASA 81 mg BID - appears to be doign well T2DM: - continue sulfonylurea and supplemental insulin, add lantus 5 units for now since sugars high related to steroids (and also w A1c 7.4) CAD S/P ROBINSON x 3 and HTN: asymptomatic - currently plavix on hold but on BID asa for DVT proph - resume plavix as soon as is OK w orthopedics - Rosuvastatin 20 mg daily continue - Isosorbide mononitrate 30 mg daily continue - Losartan 100 mg daily and amlodipine 10 mg daily continue - Metoprolol 25 mg daily - recently decreased from 50 mg due to symptomatic bradycardia continue - vitals noted and are reasonable no need for changes at this time BPH: - Finasteride 5 mg daily Code Status: FULL RESUSCITATION Disposition: Per primary team
[2016-09-15] MEDS: METOPROLOL SUCC 25MG EXT REL TAB PO SCH (21:34)
[2016-09-15] MEDS: SENNA 8.6 MG TAB PO SCH (22:06)
[2016-09-15] MEDS: CITALOPRAM 40 MG TAB PO SCH (22:06)
[2016-09-15] MEDS: AMLODIPINE BESYLATE 5 MG TAB PO SCH (22:06)
[2016-09-15] MEDS: ROSUVASTATIN CALCIUM 20 MG TAB PO SCH (22:07)
[2016-09-15] MEDS: TRAZODONE HCL 50 MG TAB PO SCH (22:07)
[2016-09-16] MEDS: ACETAMINOPHEN 500 MG TAB PO SCH ×2 (00:39→08:27)
[2016-09-16 07:59] VITALS: BP 155/82; PULSE 59; TEMP 36.6; O2SAT 98
[2016-09-16] MEDS: FERROUS GLUCONATE 324 MG TAB PO SCH ×2 (08:28→12:58)
[2016-09-16] MEDS: LOSARTAN POTASSIUM 50 MG TAB PO SCH (08:30)
[2016-09-16] MEDS: MULTIVITAMIN TAB PO SCH (08:30)
[2016-09-16] MEDS: ISOSORBIDE MONONITRATE 30 MG TABCR PO SCH (08:30)
[2016-09-16] MEDS: FINASTERIDE 5 MG TAB PO SCH (08:31)
[2016-09-16] MEDS: PANTOprazole SOD 40 MG TAB PO SCH (08:31)
[2016-09-16] MEDS: LORAZEPAM 0.5 MG TAB PO SCH (08:35)
[2016-09-16] MEDS: OXYCODONE HCL 10 MG TABCR (OXYCONTIN) PO SCH (08:35)
[2016-09-16] MEDS: INSULIN ASPART 100 UNITS/ML 3 ML PEN SC SCH ×2 (08:41→12:57)
[2016-09-16] MEDS: INSULIN GLARGINE SOLOSTAR 100 UNITS/ML 3 ML PEN SC SCH (08:42)
--- NOTE | 2016-09-16 08:50 | Orthopedic Progress Note ---
Orthopedic Progress Note Date of Service September 16, 2016. Subjective Post OP Day: 2 Reports: feeling well, Denies: SOB, calf pain, chest pain, light headedness, nausea / vomiting Objective calves soft nontender, N/V intact, dressing C/D/I, A&O x3, toes mobile Date Time Temp Pulse Resp B/P Pulse Ox O2 Delivery O2 Flow Rate FiO2 09/16/16 07:59 36.6 59 18 155/82 98 Room Air 09/16/16 00:30 Room Air 09/15/16 23:38 36.5 67 17 138/78 98 Room Air 09/15/16 21:28 69 151/77 09/15/16 16:30 Room Air 09/15/16 14:59 36.7 58 18 117/62 97 Room Air 09/15/16 11:48 36.9 66 17 120/53 97 Room Air Assessment & Plan Assessment: 71 yo male stable POD #2 s/p left TKA Plan: 1. Med management 2. DVT prophylaxis- Plavix and ASA resumed, TEDs, SCDs 3. PT/OT 4. D/C planning- home w/ HH Inhouse Planning Pain Management: Oxycontin, PO Tylenol, Oxy IR DVT Prophylaxis: TEDs, SCDs, ASA, other (plavix) Discharge Planning Discharge Planning: home with home health ([facility])
[2016-09-16] MEDS ORDERED: OXYSR10 PO (08:54)
[2016-09-16] MEDS ORDERED: ACET-1256 PO (08:54)
[2016-09-16] MEDS ORDERED: RXC5 PO (08:54)
[2016-09-16] MEDS ORDERED: ONDA8TAB6 PO (08:54)
[2016-09-16] MEDS ORDERED: ASPI81TA28 PO (08:54)
[2016-09-16] MEDS ORDERED: SNK PO (08:54)
--- NOTE | 2016-09-16 08:55 | Discharge Instructions ---
Discharge Instructions Date of Service September 16, 2016. Admission Reason for Admission: Left Knee Osteoarthritis; Right Knee Arthritis Discharge Discharge Diagnosis / Problem: SP LEFT TKA Discharge Goals Goal(s): Decrease discomfort, Improve function, Increase independence Activity Recommendations Activity Limitations: per Instructions/Follow-up section . Instructions / Follow-Up Instructions / Follow-Up ACTIVITY RECOMMENDATIONS: SELF CARE INSTRUCTIONS AFTER TOTAL KNEE REPLACEMENT A. You may need to continue a physical therapy program after discharge from the hospital. There are several options available to you. Your doctor will assist you in selecting the best one for you. 1. An out-patient facility 2 to 3 times a week for therapy or home therapy. 2. Continue working on all exercises taught to you in the hospital. Your goals should be to increase bending of your knee to 90 degrees and beyond and to fully straighten your knee. B. You may progress at your own pace from walking with a walker or crutches to a cane; then to no assistive devices. C. Make walking a part of your daily routine. Be up as much as comfortable with rest periods throughout the day. Rest with leg elevation is very important. Use the ice wrap frequently for the first 3-4 weeks. D. There are no restrictions on activities. 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 E. Wear the long elastic stockings (RAGHAV hose) 20 hours a day for 2 weeks after surgery. They can be removed several times a day for laundering and for a bath. F. You may shower, no tub baths until cleared by your doctor. SPECIAL CARE INSTRUCTIONS: VERY IMPORTANT TO READ AND REVIEW A. There are a few signs you need to watch for after you are home. Call [facility] if you notice any of the followin. Increased severe knee pain. Some pain is expected especially when you exercise. 2. Increased swelling in your leg or knee; pain or swelling of the calf muscle in either lower leg. 3. Any fluid drainage from the incision. 4. Shortness of breath or chest pain. B. Please call [facility] at if you have any concerns or questions about your operation or recovery. The doctor or his nurse will return your call promptly. C. You must take antibiotics before dental work, bladder, bowel or other surgery. Your doctor will provide you with a permanent care to carry describing this precaution. IMPORTANT: * REMEMBER TO TAKE ASPIRIN, 81 MG, TWICE DAILY FOR 4 WEEKS UNLESS OTHERWISE DIRECTED. THIS IS YOUR BLOOD THINNER. * HIGH RISK PATIENTS MAY BE PRESCRIBED A STRONGER BLOOD THINNER. THIS WILL BE PROVIDED AT DISCHARGE. * CALL IF INCREASED PAIN, REDNESS, DRAINAGE OR FEVER GREATER THAT 101. * WEAR RAGHAV HOSE 20 HOURS PER DAY FOR 2 WEEKS. * YOU MAY HAVE A LARGE BAND-AID LIKE DRESSING (SILVERON). THIS WILL REMAIN ON YOUR INCISION FOR 7 DAYS, THEN CAN BE REMOVED. IF INCISION IS LEAKING THROUGH DRESSING, CALL THE OFFICE . FOLLOW UP VISIT: If appointment is not already scheduled: Please call [facility] to make a follow-up appointment for 2 weeks after your surgery at . Current Hospital Diet Patient's current hospital diet: Diabetes Type 2 Diet Discharge Diet Recommended Diet: Regular Diet Procedures Procedures Performed: Left Total Knee Arthroplasty; Right Knee Cortisone Injection Pending Studies Studies pending at discharge: no Laboratory Results Hemoglobin A1c Test 08/16/16 14:59 Range/Units Estimated Average Glucose 166 mg/dl Hemoglobin A1c 7.4 H 4.5-5.6 % Medical Emergencies . Who to Call and When: Medical Emergencies: If at any time you feel your situation is an emergency, please call 911 immediately. . Non-Emergent Contact Non-Emergency issues call your: Surgeon . "Provider Documentation" section prepared by Caitlin Cline. . VTE Core Measure Inpt VTE Proph given/why not?: Other Anticoagulation, T.E.D. Stockings, SCD's [place] Drug Monitoring Program Search Results: patient reviewed within database, no issues identified
[2016-09-16] MEDS ORDERED: MESALAMINE 0.375 GM PO SCH (09:00)
[2016-09-16] MEDS: ASPIRIN 81 MG ECTAB PO SCH (10:08)
[2016-09-16] MEDS: DOCUSATE SODIUM 100 MG CAP PO SCH (10:08)
[2016-09-16] MEDS: GLIMEPIRIDE 2 MG TAB PO SCH (10:08)
[2016-09-16 11:13] VITALS: BP 155/82; PULSE 59; TEMP 36.6; O2SAT 98
--- NOTE | 2016-09-16 16:10 | Progress Note ---
Subjective Date of Service: September 16, 2016. Subjective Pt evaluation today including: conversation w/ patient, physical exam, chart review, lab review, review of studies, review of inpatient medication list Pain: not reporting pain PO Intake: excellent po intake Voiding: no voiding problems Review of Systems All Other Systems: Reviewed and Negative Medications Medications (Trade) Dose Ordered Sig/Reji Route Start Time Stop Time Status Last Admin Dose Admin Mesalamine (Apriso) 1.5 gm QAM PO 09/16/16 09:00 09/16/16 13:36 DC 09/16/16 08:28 1.5 GM Objective Vital Signs Date Time Temp Pulse Resp B/P Pulse Ox O2 Delivery O2 Flow Rate FiO2 09/16/16 11:13 36.6 59 18 98 Room Air 09/16/16 10:50 Room Air 09/16/16 07:59 36.6 59 18 155/82 98 Room Air 09/16/16 00:30 Room Air 09/15/16 23:38 36.5 67 17 138/78 98 Room Air 09/15/16 21:28 69 151/77 09/15/16 16:30 Room Air Physical Exam General Appearance: WD/WN, no apparent distress Respiratory/Chest: lungs clear, normal breath sounds, no respiratory distress Cardiovascular: regular rate, rhythm, no edema, no murmur Abdomen: normal bowel sounds, soft Neurologic/Psychiatric: alert, normal mood/affect, oriented x 3 Skin: no rash Laboratory Results Last Resulted CBC 09/15/16 06:40 Last Resulted BMP 09/15/16 06:40 Last 24 Hours Test 09/15/16 17:28 09/15/16 20:35 09/16/16 08:26 09/16/16 12:17 Bedside Glucose 260 mg/dl 247 mg/dl 172 mg/dl 222 mg/dl Assessment and Plan S/P L TKA by Dr. Aerllano on 09/14: - Pain management, IVF, PT/OT, and DVT prophylaxis per primary - DVT prophylaxis - ASA 81 mg BID - appears to be doing well, and discharge as per ortho, medically clear. T2DM: - continue sulfonylurea and supplemental insulin, add lantus 5 units for now since sugars high related to steroids (and also w A1c 7.4) CAD S/P ROBINSON x 3 and HTN: asymptomatic - currently plavix on hold but on BID asa for DVT proph - resume plavix as soon as is OK w orthopedics - Rosuvastatin 20 mg daily continue - Isosorbide mononitrate 30 mg daily continue - Losartan 100 mg daily and amlodipine 10 mg daily continue - Metoprolol 25 mg daily - recently decreased from 50 mg due to symptomatic bradycardia continue - vitals noted and are reasonable no need for changes at this time BPH: - Finasteride 5 mg daily Discharge planning: home with home health
[2016-09-17] MEDS ORDERED: CLOPIDOGREL BISULFATE 75 MG TAB PO SCH (09:00)
--- NOTE | 2016-09-19 13:54 | DISCHARGE SUMMARY ---
DISCHARGE DIAGNOSIS: Degenerative joint disease left knee. SECONDARY DIAGNOSES: Degenerative joint disease right knee and type 2 diabetes mellitus, history of renal carcinoma status post nephrectomy, coronary artery disease, depression, hypertension, hyperlipidemia. CONSULTS: Hanane Jones PA-C/Roel Cunningham MD COMPLICATIONS: None. PROCEDURES: 1. Right knee injection. 2. Left total knee arthroplasty by Dr. Arellano on 09/14/2016. BRIEF HISTORY: As dictated in history and physical. HOSPITAL SUMMARY: The patient was admitted on the above date and had the above-noted surgery performed which he tolerated well. On the first postoperative day, he was feeling well, neurovascularly was intact, dressings clean, dry and intact. Toes were mobile. Vital signs were stable and he was afebrile. Hemoglobin was 10.9 and patient was started on physical therapy protocol and continued on DVT prophylaxis and pain management. He was seen by [facility] for medical management and continued to remain stable. By his second postoperative day, he was feeling well and had no complaints. Calves were soft, nontender, neurovascularly intact. Dressings clean, dry and intact. Toes were mobile. Vital signs were stable. He was afebrile and he was progressing with his physical therapy. He was otherwise remaining stable and progressing with PT and it was felt he could be discharged to home. For further review, please see chart. LAB AND X-RAY DATA: As per chart. DISCHARGE INSTRUCTIONS: The patient was discharged to home in satisfactory condition on 09/16/2016. DIET: Diabetic. ACTIVITY: Follow TK instruction sheets and special care instructions as noted. Follow up with Dr. Arellano in 2 weeks. The patient to call for an appointment if one has not been made for you. DISCHARGE MEDICATIONS: Zofran 8 mg p.o. q. 8 hours p.r.n. nausea, OxyContin 10 mg p.o. q. 12 hours, oxycodone 5-10 mg p.o. q. 4 hours p.r.n., senna 17.2 mg p.o. at bedtime. Resume home meds as listed including clopidogrel 75 mg p.o. q.a.m. and aspirin 81 mg p.o. b.i.d. for 30 days and then resume once daily dosing, acetaminophen 1000 mg p.o. q. 8 hours for 30 days.
== END 2016-09-16 13:36 | disposition home health service (06) | DRG 470 ==
LOC: ENRESERVDT → ENRESERVTM → C.ACU 09:55 → C.3E 11:22 → EDBEDREQ 14:28
PROC: 3E0U33Z Introduction of Anti-inflammatory into Joints, Percutaneous Approach (ICD-10-PCS; principal; 2016-09-14 12:30)
PROC: 0SRD0J9 Replacement of Left Knee Joint with Synthetic Substitute, Cemented, Open Approach (ICD-10-PCS; principal; 2016-09-14 12:30)
DX: M17.0 Bilateral primary osteoarthritis of knee (principal); E11.9 Type 2 diabetes mellitus without complications; Z90.5 Acquired absence of kidney; I25.10 Atherosclerotic heart disease of native coronary artery without angina pectoris; F32.9 Major depressive disorder, single episode, unspecified; I10 Essential (primary) hypertension; N40.0 Benign prostatic hyperplasia without lower urinary tract symptoms; E78.5 Hyperlipidemia, unspecified; Z85.528 Personal history of other malignant neoplasm of kidney; Z98.61 Coronary angioplasty status; Z79.82 Long term (current) use of aspirin; Z79.02 Long term (current) use of antithrombotics/antiplatelets

== ENCOUNTER → 2016-11-28 | Outpatient (CLI) | payer OTHER ==
[~2016-11-28] MED LIST changes: -ACETAMINOPHEN 500 MG TAB PO SCH; -BUPIVACAINE 0.5 % 5 MG/1 ML PF 10ML VIAL ONE; -DEXAMETHASONE 4 MG TAB PO SCH; -FAMOTIDINE 20 MG TAB PO SCH; -GABAPENTIN 300 MG CAP PO SCH; +ISOS30TA3 PO; -ISR/30 PO; -LACTATED RINGER'S 1000ML 1,000 ML IV SCH; -METOCLOPRAMIDE HCL 10 MG TAB PO SCH; +ONDA8TAB6 PO; +OXYSR10 PO; -ROPIVACAINE 5MG/ML 30 ML 150 MG, BUPIVACAINE/EPINEPHR 0.5% MPF 30 ML, KETOROLAC TROMETH... INFIL SCH; +RXC5 PO; +SNK PO; -VANCOMYCIN INJ 1,300 MG in SODIUM CHLORIDE 0.9% 250ML 250 ML IV SCH
[2016-11-28 13:20] LABS: BASO % 0.7 %; BASO ABS # 0.04 K/uL (0-0.2); COMPLETE YES; HEMATOCRIT 38.1 % (42-52); IG% 0.2 %; LYMPH % 27.5 %; LYMPH ABS # 1.61 K/uL (1.2-3.4); MEAN CELL VOLUME 85.4 fL (80-100); MEAN CORPUSCULAR HEMOGLOBIN 27.8 pg (25-34); MEAN CORPUSCULAR HGB CONC 32.5 g/dl (32-36); MEAN PLATELET VOLUME 9.7 fL (7.4-10.4); NEUT % 55.6 %; PLATELET COUNT 177 K/uL (130-400); RED BLOOD COUNT 4.46 M/uL (4.7-6.1); WHITE BLOOD COUNT 5.86 K/uL (4.8-10.8)
[2016-11-28 13:36] LABS: ESTIMATED AVERAGE GLUCOSE 157 mg/dl; HA1C FLAG Normal (Normal)
[2016-11-28 13:38] LABS: BLOOD UREA NITROGEN 17 mg/dl (7-18); BUN/CREATININE RATIO 13.9 (10-20); CALCIUM 9.7 mg/dl (8.5-10.1); CARBON DIOXIDE 29 mmol/L (21-32); CHLORIDE 105 mmol/L (98-107); GLUCOSE 256 mg/dl (70-99); PHOSPHORUS 3.3 mg/dl (2.5-4.9); POTASSIUM 4.7 mmol/L (3.5-5.1); SODIUM 137 mmol/L (136-145)
== END | disposition home or self-care (01) ==
LOC: C.LABMFLN 10:13
PROVIDERS: ATTEND Family Medicine
DX: E11.9 Type 2 diabetes mellitus without complications (principal)

== ENCOUNTER → 2017-05-28 | Outpatient (CLI) | payer OTHER ==
[~2017-05-28] MED LIST changes: -FOLI1TAB7 PO; +FOLI1TAB8 PO; -ONDA8TAB6 PO
--- NOTE | 2017-05-28 08:56 | DIAGNOSTIC IMAGING REPORT ---
SMALL BOWEL FOLLOW-THROUGH CLINICAL HISTORY: Abnormal CT scan. COMPARISON STUDY: CT of the abdomen and pelvis May 14, 2017. FLUOROSCOPY TIME: 1.3 minutes. FINDINGS: 10 fluoroscopic images were obtained. Reinforcing Steel Placer KUB demonstrates a normal bowel gas pattern. Jejunal and ileal fold patterns are normal. No small bowel mass is identified by fluoroscopy. There is no evidence for a small bowel obstruction. Terminal ileum is normal. Contrast reached the colon in 20 minutes. IMPRESSION: Unremarkable small bowel follow-through. Electronically signed by: Nacho Ríos M.D. 05/28/2017 8:55 AM Dictated Date/Time: 05/28/2017 8:47 AM
== END | disposition home or self-care (01) ==
LOC: C.RAD 07:49
PROVIDERS: ATTEND Family Medicine
DX: R93.8 Abnormal findings on diagnostic imaging of other specified body structures (principal)

== ENCOUNTER → 2017-06-12 | Outpatient (CLI) | payer OTHER ==
[~2017-06-12] MED LIST changes: -METO50TA7 PO; +METO50TA8 PO
== END | disposition home or self-care (01) ==
LOC: C.LABMFLN 09:35
PROVIDERS: ATTEND Family Medicine
DX: R30.0 Dysuria (principal)

== ENCOUNTER → 2017-06-26 | Outpatient (CLI) | payer OTHER ==
[2017-06-26 17:59] LABS: BASO % 0.6 %; BASO ABS # 0.04 K/uL (0-0.2); EOS % 1.1 %; EOS ABS # 0.07 K/uL (0-0.5); HEMOGLOBIN 13.3 g/dL (14.0-18.0); IG# 0.01 K/uL (0.00-0.02); LYMPH % 25.4 %; LYMPH ABS # 1.69 K/uL (1.2-3.4); MEAN CELL VOLUME 87.9 fL (80-100); MEAN CORPUSCULAR HEMOGLOBIN 29.2 pg (25-34); MEAN CORPUSCULAR HGB CONC 33.3 g/dl (32-36); MONO % 8.9 %; MONO ABS # 0.59 K/uL (0.11-0.59); NEUT % 63.8 %; NEUT ABS # 4.25 K/uL (1.4-6.5); PLATELET COUNT 227 K/uL (130-400); RED CELL DISTRIBUTION WIDTH SD 41.5 fL (36.4-46.3); WHITE BLOOD COUNT 6.65 K/uL (4.8-10.8)
[2017-06-26 18:28] LABS: ALBUMIN 3.8 gm/dl (3.4-5.0); ALT/SGPT 25 U/L (12-78); BLOOD UREA NITROGEN 23 mg/dl (7-18); CALCIUM 9.6 mg/dl (8.5-10.1); CARBON DIOXIDE 29 mmol/L (21-32); CHOLESTEROL 98 mg/dl (0-200); CREATININE 1.02 mg/dl (0.60-1.40); GLUCOSE 173 mg/dl (70-99); POTASSIUM 4.6 mmol/L (3.5-5.1); SODIUM 137 mmol/L (136-145)
[2017-06-26 18:31] LABS: ALKALINE PHOSPHATASE 81 U/L (45-117); AST/SGOT 17 U/L (15-37); LDL CHOLESTEROL CALCULATED 40 mg/dl; TOTAL PROTEIN 7.4 gm/dl (6.4-8.2)
[2017-06-27 07:07] LABS: HEMOGLOBIN A1C 7.7 % (4.5-5.6)
== END | disposition home or self-care (01) ==
LOC: C.LABMFLN 10:56
PROVIDERS: ATTEND Family Medicine
DX: I25.10 Atherosclerotic heart disease of native coronary artery without angina pectoris (principal); E78.5 Hyperlipidemia, unspecified; E11.9 Type 2 diabetes mellitus without complications

== ENCOUNTER → 2017-06-27 | Outpatient (CLI) | payer OTHER ==
[2017-06-27 14:17] LABS: CREATININE RANDOM URINE 44.5 mg/dl
== END | disposition home or self-care (01) ==
LOC: C.LABMFLN 10:02
PROVIDERS: ATTEND Family Medicine
DX: E11.9 Type 2 diabetes mellitus without complications (principal)

== ENCOUNTER → 2017-09-18 | Outpatient (CLI) | payer OTHER ==
[2017-09-18 12:44] LABS: HEMATOCRIT 39.9 % (42-52); HEMOGLOBIN 13.2 g/dL (14.0-18.0); MEAN CELL VOLUME 86.6 fL (80-100); MEAN CORPUSCULAR HEMOGLOBIN 28.6 pg (25-34); MEAN CORPUSCULAR HGB CONC 33.1 g/dl (32-36); MEAN PLATELET VOLUME 9.9 fL (7.4-10.4); PLATELET COUNT 170 K/uL (130-400); RED CELL DISTRIBUTION WIDTH CV 12.5 % (11.5-14.5); WHITE BLOOD COUNT 4.55 K/uL (4.8-10.8)
[2017-09-18 13:04] LABS: ALBUMIN 3.8 gm/dl (3.4-5.0); BLOOD UREA NITROGEN 19 mg/dl (7-18); CALCIUM 9.2 mg/dl (8.5-10.1); CARBON DIOXIDE 26 mmol/L (21-32); CREATININE 1.01 mg/dl (0.60-1.40); GLUCOSE 239 mg/dl (70-99); PHOSPHORUS 3.5 mg/dl (2.5-4.9); POTASSIUM 4.4 mmol/L (3.5-5.1); SODIUM 138 mmol/L (136-145)
== END | disposition home or self-care (01) ==
LOC: C.LABMFLN 10:19
PROVIDERS: ATTEND Internal Medicine Nephrology
DX: R80.9 Proteinuria, unspecified (principal)

== ENCOUNTER → 2017-09-19 | Outpatient (CLI) | payer OTHER | END | disposition home or self-care (01) | LOC: C.LABMFLN 09:43 | PROVIDERS: ATTEND Internal Medicine Nephrology | DX: R80.9 Proteinuria, unspecified (principal) ==